=== PATIENT | female | born 1990 | race Caucasian/White ===

== ENCOUNTER 2022-03-10 09:47 | Day surgery (SDC) | payer OTHER ==
[2022-03-10] MEDS ORDERED: Depo-Medrol 40 MG/ML IM ONE (09:48)
[2022-03-10] MEDS ORDERED: Xylocaine 1% Vial 30 ML PF IJ ONE (09:48)
[2022-03-10] MEDS ORDERED: Sodium Chloride 0.9(Preservative Free) 10 ML IJ ONE (09:48)
[2022-03-10] MEDS ORDERED: Lactated Ringers 1,000 ML IV ONE (11:33)
[2022-03-10] MEDS ORDERED: DIPRIVAN 200 MG/20 ML IV ONE (11:51)
--- NOTE | 2022-03-10 14:06 | XRAY ---
Indication: Lumbar MICHAEL. Intraoperative fluoroscopy provided for 11 seconds. 2 digital spot image submitted for interpretation demonstrates midline posterior needle tip projecting just posterior to last lumbar segment. Small amount of contrast injected for needle tip placement. Correlate with intraoperative findings/report.
--- NOTE | 2022-03-10 15:17 | XRAY ---
11 seconds of fluoroscopy was used in surgery for a lumbar MICHAEL.
== END 2022-03-10 12:22 | disposition home or self-care (01) ==
LOC: SDC-PAIN 09:47
PROVIDERS: ATTEND Psychiatry & Neurology Pain Medicine
DX: M54.16 Radiculopathy, lumbar region (principal); Z79.899 Other long term (current) drug therapy
CPT/HCPCS: 62323; 72100; 77003; J1030; J2001; J2704; Q9966

== ENCOUNTER 2022-09-01 15:42 | Day surgery (SDC) | payer OTHER ==
[2022-09-01] MEDS ORDERED: Xylocaine 1% Vial 30 ML PF IJ ONE (15:43)
[2022-09-01] MEDS ORDERED: Lactated Ringers 1,000 ML IV ONE ×3 (16:47→19:06)
[2022-09-01] MEDS ORDERED: BACIGUENT 30 GM ONE (16:59)
[2022-09-01] MEDS ORDERED: DIPRIVAN 200 MG/20 ML IV ONE ×2 (17:39→18:03)
--- NOTE | 2022-09-01 19:29 | XRAY ---
Indication: Spinal cord stimulator trial. Intraoperative fluoroscopy provided for 1 minute 29 seconds. 7 digital spot image submitted for interpretation demonstrates introducer needle tip projecting posterior to thoracolumbar junction. Ultimately, single epidural stimulator lead inserted with tip positioned at T6-T7 interspace. Correlate with intraoperative findings/report.
--- NOTE | 2022-09-02 09:42 | XRAY ---
One minute and 29 seconds of fluoroscopy was used in surgery for a spinal cord stimulator trial.
== END 2022-09-01 18:55 | disposition home or self-care (01) ==
LOC: SDC-PAIN 15:42
PROVIDERS: ATTEND Psychiatry & Neurology Pain Medicine
DX: M54.16 Radiculopathy, lumbar region (principal)
CPT/HCPCS: 01941; 63650; 72100; 77002; C1778; J2001; J2704; A9270-GY

== ENCOUNTER 2023-11-16 12:12 | Day surgery (SDC) | payer OTHER ==
[2023-11-16] MEDS ORDERED: LIDOCAINE HCL 2% 100 MG/5 ML IJ ONE (12:13)
[2023-11-16] MEDS ORDERED: DIPRIVAN 200 MG/20 ML IV ONE (15:17)
[2023-11-16] MEDS ORDERED: Lactated Ringers 1,000 ML IV ONE (15:36)
--- NOTE | 2023-11-16 20:15 | XRAY ---
Indication: Bilateral L4-S1 MBB Intraoperative fluoroscopy provided for 8 seconds. Single digital spot image submitted for interpretation demonstrates posterior needle tips projecting over the expected left and right L4-S1 nerve roots. Correlate with intraoperative findings/report.
--- NOTE | 2023-11-17 09:37 | XRAY ---
8 seconds of fluoroscopy was used in surgery for a bilateral L4-S1 MBB.
== END 2023-11-16 15:46 | disposition home or self-care (01) ==
LOC: SDC-PAIN 12:12
PROVIDERS: ATTEND Psychiatry & Neurology Pain Medicine
DX: M47.816 Spondylosis without myelopathy or radiculopathy, lumbar region (principal)
CPT/HCPCS: 64493; 64494; 72020; 77002; J2704

== ENCOUNTER 2025-01-23 10:51 | Day surgery (SDC) | payer OTHER ==
[2025-01-23] MEDS ORDERED: LIDOCAINE HCL 2% 100 MG/5 ML IJ ONE (10:52)
[2025-01-23] MEDS ORDERED: propofoL IV ONE (11:51)
--- NOTE | 2025-01-23 12:53 | XRAY ---
Indication: Bilateral L4-S1 MBB. Intraoperative fluoroscopy provided for 7 seconds. Single digital spot image submitted for interpretation demonstrates posterior needle tips projecting over expected left and right L4-S1 nerve roots. Correlate with intraoperative findings/report.
--- NOTE | 2025-01-23 12:58 | XRAY ---
7 seconds of fluoroscopy was used in surgery for a bilateral L4-S1 MBB.
== END 2025-01-23 12:30 | disposition home or self-care (01) ==
LOC: SDC-PAIN 10:51
PROVIDERS: ATTEND Psychiatry & Neurology Pain Medicine
DX: M47.816 Spondylosis without myelopathy or radiculopathy, lumbar region (principal)
CPT/HCPCS: 64493; 64494; 72020; J2704